=== PATIENT | male | born 1990 | race Caucasian/White ===

== ENCOUNTER 2016-08-28 17:27 | Emergency (ER) | payer MEDICAID ==
--- NOTE | 2016-08-28 17:38 | UCPHY ---
H & P Patient Type: New HPI/ROS: CHIEF COMPLAINT: Penis pain HISTORY OF PRESENT ILLNESS: The patient is a 26 year old male presenting with returned penile pain. The patient has undergoing treatment for this pain for the past 3 months. His pain is localized to the base of his penis. He has additional complaints of urinary frequency, urgency, and intermittent suprapubic pain. The patient was first treated for prostatitis in early June. He was started on an antibiotic that he is unable to recall. However, the pain continued and he was then started on Ciprofloxacin which he took for a month. This improved his pain for a short time. He was seen again 3 weeks ago and diagnosed with nongonococcal urethritis. He was started on azithromycin. The patient states the urgency and pain were relieved for about 1 week and then the pain returned. He was then seen in the [facility] and started on doxycycline for possible STD. He finished this antibiotic 3 days ago and has since had intermittent pain. Yesterday, the base of his penis began to feel sore , however the urgency had improved. This afternoon, the pain worsened. It is now more severe than it has ever been. He has been taking 3000mg Tylenol daily for pain. He denies back pain or fever. No penile discharge. No sores or lesions on the penis. No penile deformity. No dyspareunia. Of note, the patient has only had 1 partner for the past 6 years. They do not use condoms during intercourse. His partner was tested for STDs about 6 months ago and tested negative. REVIEW OF SYSTEMS: A ten point review of systems was performed and is negative with the exception of the items mentioned in the HPI. Source: Patient - Medical/Surgical History Other PMH: Denies - Family History Significant Family History: No pertinent family hx - Social History Smoking Status: Never smoked Alcohol Use: Occasionally Drug Use: None Additional Social History: He is self employed. - Physical Exam Exam: General Appearance: Alert. Vital signs reviewed. BP 150/73. Eyes: Pupils equal and round, no conjunctival injection, no discharge. Anicteric. ENT, Mouth: Mucous membranes are moist, no oropharyngeal erythema or edema. Neck: No lymphadenopathy, supple. Respiratory: Lungs are clear to auscultation; no wheezes, rales, or rhonchi. Cardiovascular: Regular rate and rhythm; no murmur, rub, or gallop. Gastrointestinal: Abdomen is soft and nontender, no masses or organomegaly, bowel sounds normal. Genitalia: Normal uncircumcised male. No testicular swelling or pain with palpation. No scrotal masses. Foreskin easily retracted. No penile lesions or discharge. No penile deformity. Tender to palpation at base of penis, no guarding. Rectal: No prostate enlargement or tenderness. Skin: Warm and dry, no rashes on exposed skin, normal color. Back: Nontender to palpation over the thoracolumbar spine. No CVAT. Extremities: No lower extremity edema, no calf tenderness or swelling. Neurological: Alert and oriented. Moving all four extremities easily and equally. Psychiatric: Normal affect. Constitutional: Initial Vital Signs Temperature (C) 36.7 C 08/28/16 17:44 Heart Rate 93 08/28/16 17:44 Respiratory Rate 16 08/28/16 17:44 Blood Pressure 150/73 H 08/28/16 17:44 O2 Sat (%) 96 08/28/16 17:44 O2 Delivery Mode Room Air Allergies/Adverse Reactions: No Known Allergies Allergy (Verified 01/03/13 11:44) Home Medications: Medication Instructions Recorded No Medications [NO [place] 1 [place] [facility] [place] oxyCODONE/APAP 5/325 [Percocet 1 - 2 tab PO Q4H PRN #10 tab 08/28/16 5/325 (RX)] Medical Decision Making ED Course/Re-evaluation: GC/Chlamydia ordered. The patient received 1 tab Oxycodone PO. UA normal. 7:10 p.m.: The patient's pain improved after the Percocet. I reevaluated him, he has no guarding or abdominal pain. Pain remains localized to the base of penis. The etiology of his pain remains unclear. Infectious causes such as prostatitis , UTI have been considered and treated without lasting relief. He has been treated for STD. I sent urine for GC and chlamydia testing but am not treating for these infections again. No penile deformity to suggest Peyronie's. No paraphimosis. He is not experiencing dyspareunia. No skin redness or warmth or anything that might suggest Emmett's. This has been an intermittent problem for him over three months. I am referring him to a urologist and to his PCP. In the meantime, I have written RX for small quantity of percocet. Danger signs reviewed with him. - Data Points Medications Given: Discontinued Medications Ketorolac Tromethamine (Toradol) 15 mg IVP EDNOW ONE Stop: 08/28/16 19:12 Last Admin: 08/28/16 20:14 Dose: Not Given Oxycodone/Acetaminophen (Percocet 5/325) 1 tab PO EDNOW ONE Stop: 08/28/16 18:13 Last Admin: 08/28/16 18:23 Dose: 1 tab Departure - Departure Disposition: Home, Routine, Self-Care Clinical Impression: Penile pain Condition: Good Instructions: Groin Pain (ED) Additional Instructions: You have been referred to 2 different Urologists. Please call these physicians to schedule an appointment as soon as possible. As we discussed, I am not certain what is causing her pain right now. I do not know that antibiotics will help as I have not identified a bacterial infection. I am giving a prescription for small quantity of Percocet. Each pill contains 325 mg of Tylenol. You have already taken 1825 mg of Tylenol today. You cannot take more than 3000 mg of Tylenol in a 24 hour time. So keep track of your overall Tylenol doses. You can take ibuprofen 600 mg every 6-8 hours and I recommend that you do so. If anything changes--inability to urinate, blood in your urine, intractable pain, fever, any new or concerning symptoms-- please return here for another evaluation. I recommend that you not have sexual intercourse until this has been sorted out. I did send STD testing again tonight. These results should be available within the next two days. You will be contacted if you have a sexually transmitted disease based upon our testing. Referrals: Ashwin Shultz MD [Primary Care Provider] - As per Instructions Herb Lin MD [Medical Doctor] - As per Instructions Jason Zuleta MD [Medical Doctor] - As per Instructions Prescriptions: oxyCODONE/APAP 5/325 [Percocet 5/325 (RX)] 1 - 2 tab PO Q4H PRN #10 tab PRN Reason: Pain, Severe - PQRS PQRS Measurement: Not applicable. Report Scribed for: Marifer Bryant Report Scribed by: Sherie Guevara Date of Report: 08/28/16 Time of Report: 18:34 Physician Review and Approval Statement: 08/28/16 17:38 Portions of this note were transcribed by the medical management trainer. I, Dr. Marifer Bryant, personally performed the history, physical exam, and medical decision- making; and confirmed the accuracy of the information in the transcribed note.
[2016-08-28 17:46] VITALS: BP 150/73; PULSE 93; RESP 16; TEMP 98; O2SAT 96
[2016-08-28 17:50] LABS: COLOR YELLOW; LEUKOCYTE ESTERASE,URINE NEGATIVE (NEGATIVE); NITRITE,URINE NEGATIVE (NEGATIVE)
[2016-08-28] MEDS ORDERED: OXYCODONE/APAP 5/325 TAB PO ONE (18:12)
[2016-08-28] MEDS ORDERED: KETOROLAC 30 MG/1 ML SDV IVP ONE (19:11)
[2016-08-29 15:15] LABS: CHLAMYDIA AMPLIFICATION GENPRB NEGATIVE (NEGATIVE)
== END 2016-08-28 20:23 | disposition home or self-care (01) ==
LOC: CED 17:27
DX: N48.89 Other specified disorders of penis (principal)
CPT/HCPCS: 81003-PO; G0463-PO